=== PATIENT | female | born 1980 | race Caucasian/White ===

== ENCOUNTER 2021-02-15 15:39 | Emergency (ER) | payer SELFPAY ==
[~2021-02-15] VITALS: Ht 165.1 cm; Wt 66.0 kg
[2021-02-15 16:07] VITALS: BP 102/65
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
--- NOTE | 2021-02-15 16:22 | NUR ---
PTS SISTER AT BEDSIDE.
[2021-02-15 16:23] LABS: BASOPHILS % (AUTO) 1 % (0-1); EOSINOPHILS % (AUTO) 4 % (1-7); LYMPHOCYTES % (AUTO) 34 % (22-44); MEAN CORPUSCULAR HEMOGLOBIN 29.8 pg (27.0-34.8); MEAN CORPUSCULAR HGB CONC 34.3 g/dL (32.4-35.8); MEAN PLATELET VOLUME 7.9 fL (7.4-10.4); MONOCYTES % (AUTO) 8 % (2-9); NEUTROPHILS % (AUTO) 53 % (42-75); PLATELET COUNT 319 x10^3/uL (130-400); RED BLOOD COUNT 4.42 x10^6/uL (3.82-5.3); RED CELL DISTRIBUTION WIDTH 13.4 % (9.6-15.2)
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
--- NOTE | 2021-02-15 16:31 | NUR ---
DR ROLAND AT BEDSIDE TO EVAL PT
[2021-02-15 16:34] LABS: ALANINE AMINOTRANSFERASE 40 U/L (12-78); ALBUMIN 3.6 g/dL (3.4-5.0); ANION GAP 5 mmol/L (5-15); CALCIUM 7.8 mg/dL (8.5-10.1); CHLORIDE 106 mmol/L (98-107)
[2021-02-15 16:39] LABS: ALKALINE PHOSPHATASE 79 U/L (45-117)
--- NOTE | 2021-02-15 17:28 | NUR ---
PT AT DESK. "I'M GOING TO LEAVE, MY HUSBANDS INSURANCE IS WITH [employer], I WILL GO AND SEE DR COLON. PT DIRECTED TO REGISTRATION. DR ROLAND NOTIFIED.
[2021-02-15] MEDS ORDERED: POTASSIUM CHLORIDE 20 MEQ TAB.ER.PRT PO ONE (18:00)
== END 2021-02-15 17:51 | disposition home or self-care (01) ==
LOC: ED 15:45
DX: N93.8 Other specified abnormal uterine and vaginal bleeding (principal); F17.200 Nicotine dependence, unspecified, uncomplicated
CPT/HCPCS: 36415; 80053; 84703; 85025; 99283